=== PATIENT | male | born 1950 | race Caucasian/White ===

== ENCOUNTER 2017-12-23 08:34 | Day surgery (SDC) | payer OTHER ==
[2017-12-23] MEDS ORDERED: LIDOCAINE 100 MG SYRINGE (10:52)
[2017-12-23] MEDS ORDERED: PROPOFOL 40 ML (10:52)
== END 2017-12-23 17:34 | disposition home or self-care (01) ==
LOC: GIL 08:34
DX: Z12.11 Encounter for screening for malignant neoplasm of colon (principal); D12.5 Benign neoplasm of sigmoid colon; K57.90 Diverticulosis of intestine, part unspecified, without perforation or abscess without bleeding; K64.8 Other hemorrhoids; E78.5 Hyperlipidemia, unspecified; I12.9 Hypertensive chronic kidney disease with stage 1 through stage 4 chronic kidney disease, or unspecified chronic kidney disease; N18.9 Chronic kidney disease, unspecified
CPT/HCPCS: 45380; 88305

== ENCOUNTER 2018-09-07 10:21 | Day surgery (SDC) | payer OTHER ==
[~2018-09-07 10:21] MED LIST: CEFAZOLIN 2 GM/50 ML (PMX) 50 ML IVPB; SOD CHLORIDE 0.9% 1,000 ML IV
[2018-09-07] MEDS ORDERED: PROPOFOL 20 ML ×2 (12:54→13:28)
[2018-09-07] MEDS ORDERED: FENTAnyl 50 MCG/ML VIAL (12:54)
[2018-09-07] MEDS ORDERED: ETOMIDATE 20 MG INJ (12:54)
[2018-09-07] MEDS ORDERED: LIDOCAINE 1% (MDV) 20 ML INJ (12:55)
[2018-09-07] MEDS ORDERED: LABETALOL HCL 20MG INJ IV (13:00)
[2018-09-07] MEDS ORDERED: HYDROmorphONE 1 MG/5 ML IV SYRINGE IV ×2 (13:00)
[2018-09-07] MEDS ORDERED: hydrALAzine 20 MG INJ IV (13:00)
[2018-09-07] MEDS ORDERED: MEPERIDINE 25 MG INJ IV (13:00)
[2018-09-07] MEDS ORDERED: CEFAZOLIN 1 GM INJ (13:05)
[2018-09-07] MEDS: BUPIVACAINE 0.25%/EPI (SDV) 30 ML INJ (13:26)
[2018-09-07] MEDS ORDERED: EPHEDrine 25 MG/5 ML SYG (13:28)
[2018-09-07] MEDS ORDERED: SUCCINYLCHOLINE CHLORIDE 100 MG/5 ML SYG IV (13:28)
[2018-09-07] MEDS ORDERED: ONDANSETRON 4 MG INJ ×2 (13:28→15:12)
[2018-09-07] MEDS ORDERED: PHENYLephrine (100 MCG/ML) 10ML SYG (13:28)
[2018-09-07] MEDS ORDERED: ONDANSETRON 4 MG INJ IV (14:00)
[2018-09-07] MEDS ORDERED: ACETAMINOPHEN 325 MG TAB PO (14:00)
[2018-09-07] MEDS: SOD CHLORIDE 0.9% 1,000 ML IV (14:21)
[2018-09-07] MEDS: CEFAZOLIN 2 GM/50 ML (PMX) 50 ML IVPB (14:23)
[2018-09-07] MEDS ORDERED: ROPIVACAINE 0.5 % 30 ML VIAL (15:19)
[2018-09-07] MEDS ORDERED: NEOSTIGMINE 3 MG/3 ML SYRINGE (15:50)
[2018-09-07] MEDS ORDERED: GLYCOPYRROLATE 0.4 MG INJ (15:50)
== END 2018-09-07 15:55 | disposition home or self-care (01) ==
LOC: SDS 10:21
DX: D17.0 Benign lipomatous neoplasm of skin and subcutaneous tissue of head, face and neck (principal); E78.5 Hyperlipidemia, unspecified; E66.9 Obesity, unspecified; I12.9 Hypertensive chronic kidney disease with stage 1 through stage 4 chronic kidney disease, or unspecified chronic kidney disease; N18.9 Chronic kidney disease, unspecified
CPT/HCPCS: 21554; 88307